=== PATIENT | male | born 1975 | race Caucasian/White ===

== ENCOUNTER 2020-02-06 18:25 | Emergency (ER) | payer SELFPAY ==
[~2020-02-06] VITALS: Ht 172.7 cm; Wt 72.6 kg
[2020-02-06 18:50] VITALS: BP 116/80
[2020-02-06] MEDS ORDERED: FAMOTIDINE 20 MG TAB PO ONE (19:30)
[2020-02-06 20:04] VITALS: BP 116/80
--- NOTE | 2020-02-06 20:04 | NUR ---
PT SEEN MY PA. NO NURSING INTERVENTIONS NEEDED
--- NOTE | 2020-02-06 20:04 | NUR ---
PCR COVID SWAB COMPLETE
== END 2020-02-06 20:02 | disposition home or self-care (01) ==
LOC: MED 18:25
DX: U07.1 COVID-19 (principal); T78.49XA Other allergy, initial encounter; L27.2 Dermatitis due to ingested food; X58.XXXA Exposure to other specified factors, initial encounter
CPT/HCPCS: 99283; U0003